=== PATIENT | female | born 1985 | race Caucasian/White ===

== ENCOUNTER 2018-03-31 15:02 | Inpatient (IN) | payer OTHER ==
[~2018-03-31 15:02] MED LIST: Bupivacaine 0.25% 10 ML SDV ONE
[2018-03-31] MEDS ORDERED: Nalbuphine 20 MG/ML 1 ML Syringe IVPUSH PRN (15:37)
[2018-03-31] MEDS ORDERED: Ondansetron 4 MG/2 ML SDV IVPUSH PRN (15:37)
[2018-03-31] MEDS ORDERED: Sodium Chloride 0.9% 10 ML Syringe FLUSH PRN (15:37)
[2018-03-31] MEDS ORDERED: Oxytocin/Lactated Ringers 10 UNIT/1,000 ML BAG IV SCH ×3 (15:45→20:16)
--- NOTE | 2018-03-31 15:53 | PCM.LDHP ---
L&D History of Present Illness - General Date of Service: 03/31/18 Admit Problem/Dx: Patient Status Order with Admit Dx/Problem 03/31/18 15:38 Patient Status [ADT] Routine Admission Diagnosis/Problem Admission Diagnosis/Problem Source of Information: Patient History Limitations: Reports: No Limitations - History of Present Illness Introduction:: Juanis Allan is a 32 year old at 40 weeks 2 days by LMP consistent with 6 week ultrasound who presents in active labor. She states that she began having regular contractions last evening but then they stopped during the night. Contractions restarted this afternoon at around noon and states that they were approximate 7 minutes apart. Reports the contractions are strong and causing enough pain to cause her to stop and catch her breath. She denies any leaking of fluid or vaginal bleeding. Reports good movement. Timing/Duration: Reports: gradual onset, getting worse (every 5-7 minutes) Location, : Reports: Abdomen, Lower back, Pelvic Quality: Reports: Pressure, Throbbing Severity: Moderate Improves with: Reports: None Worsens with: Reports: None Associated Symptoms: Denies: vaginal bleeding, vaginal discharge, vaginal fluid Present Illness Comments:: Juanis Allan is a 32 year old at 40 weeks 5 days by LMP consistent with 6 week ultrasound. She has had routine care with Dr. Uriostegui since 6 weeks gestational age review of her labs shows blood type is a positive with negative antibody screen. Her initial hematocrit was 36.3 and hemoglobin of 12.3 and platelets were 249 on 09/08/2017. She is immune to rubella. Her hepatitis B surface antigen, syphilis and HIV tests were all negative. She was negative for gonorrhea and chlamydia. Her Pap smear was normal with negative HPV testing. Her urine culture did not show any growth. Her quad screen was within normal limits. Her repeat hemoglobin with her 1 hour glucose test was 11.3 with platelets of 191. Her 1 hour glucose test was normal at 76. Her GBS swab was negative. This has been uncomplicated. Her anatomy ultrasound done at around 20 weeks was normal. - Related Data Allergies/Adverse Reactions: Allergies Allergy/AdvReac Type Severity Reaction Status Date / Time cephalexin Allergy Shortness Verified 12/09/14 07:36 of Breath Home Medications: Home Meds Vit 90/Iron Fum/Folic [ Formula] 1 tab PO DAILY 06/02/14 [ History] Acetaminophen [Tylenol] 650 mg PO Q4H PRN #0 tablet 12/10/14 [Rx] Benzocaine/Menthol [Dermoplast Pain [facility] [place]] 1 applic TOP ASDIRECTED PRN # 0 canister 12/10/14 [Rx] Docusate Sodium [Colace] 100 mg PO BID PRN #0 cap 12/10/14 [Rx] Hydrocortisone [Hydrocortisone 1% Crm] 1 applic TOP ASDIRECTED PRN #0 tube 12/10 [Rx] Ibuprofen [Motrin] 600 mg PO Q4H PRN #0 tablet 12/10/14 [Rx] Past Medical History - Past Health History Medical/Surgical History: Denies Medical/Surgical History Other HEENT History: teeth extraction : 3 Para: 2 Other Dermatologic History: mass excised from back Social & Family History - Tobacco Use Smoking Status *Q: Never Smoker - Tobacco Core Measures Tobacco Use/Smoking Within Last 30 Days: No - Alcohol Use Alcohol Use History: No - Recreational Drug Use Recreational Drug Use: No Drug Use in Last 12 Months: No - Living Situation & Occupation Living situation: Reports: , with Spouse Occupation: Employed H&P Review of Systems - Review of Systems: Review Of Systems: See Below General: Denies: Fever, Chills, Fatigue HEENT: Reports: Headaches (with contractions). Denies: Post Nasal Drip, Sinus Congestion, Sore Throat, Visual Changes Pulmonary: Denies: Shortness of Breath, Wheezing, Cough Cardiovascular: Denies: Chest Pain, Palpitations Gastrointestinal: Reports: Nausea (with painful contractions). Denies: Abdominal Pain, Constipation, Diarrhea, Vomiting Genitourinary: Denies: Dysuria, Frequency, Burning, Pain, Urgency Musculoskeletal: Reports: Back Pain. Denies: Joint Pain, Muscle Pain Skin: Denies: Rash, Lesions Psychiatric: Denies: Depression, Anxiety Hematologic/Lymphatic: Denies: Anemia L&D Exam - Exam Exam: See Below - Vital Signs Vital Signs: Last Vital Signs Temp 36.8 C 03/31/18 15:44 Pulse 79 03/31/18 15:44 Resp 16 03/31/18 15:44 BP 112/61 03/31/18 15:44 Pulse Ox 100 03/31/18 15:44 - OB Specific Contraction Duration (sec): 75 Contraction Frequency (min): 7-12 Contraction Intensity: Moderate to Strong Movement: Active Heart Tones: Present Heart Tones per Min: 145 (positive 15 x 15 accelerations, occasional variable decelerations) Heart Rate (FHR) Variability: Moderate (6-25 bmp) Presentation: Vertex Estimated Weight: 6.5-7 lbs by [place] - Fernandez Score Fernandez Score Cervix Position: Anterior Fernandez Score Consistency: Soft Fernandez Score Effacement: >80% (90%) Fernandez Score Dilation: > 5 cm (7 cm) Fernandez Score 's Station: -1 ,0 Fernandez Score Total: 12 - Exam General: Alert, Oriented HEENT: Conjunctiva Clear, EOMI Neck: Supple, Trachea Midline Lungs: Clear to Auscultation, Normal Respiratory Effort Cardiovascular: Regular Rate, Regular Rhythm GI/Abdominal Exam: Soft, Non-Tender, No Distention, Other (gravid). No: Guarding, Rigid, Rebound Genitourinary: Normal external exam Back Exam: Normal Inspection Extremities: Normal Inspection, No Pedal Edema Skin: Warm, Dry, Intact Psychiatric: Alert, Normal Affect, Normal Mood - Patient Data Lab Results Last 24 hrs: Laboratory Results - last 24 hr 03/31/18 Range/Units 15:35 WBC 8.95 (3.98-10.04) K/mm3 RBC 4.56 (3.98-5.22) M/mm3 Hgb 13.6 (11.2-15.7) gm/L Hct 40.2 (34.1-44.9) % MCV 88.2 (79.4-94.8) fl MCH 29.8 (25.6-32.2) pg MCHC 33.8 (32.2-35.5) g/dl RDW Std Deviation 43.5 (36.4-46.3) fL Plt Count 149 L (182-369) K/mm3 MPV 11.7 (9.4-12.3) fl Result Diagrams: 03/31/18 15:35 - Problem List (1) 40 weeks gestation of SNOMED Code(s): 75019706 ICD Code: Z3A.40 - 40 WEEKS GESTATION OF Status: Acute Current Visit: Yes (2) Normal SNOMED Code(s): 51225540 ICD Code: Z34.90 - ENCNTR FOR SUPRVSN OF NORMAL , UNSP, UNSP TRIMESTER Status: Acute Current Visit: No Problem List Initiated/Reviewed/Updated: Yes Orders Last 24hrs: Active Orders 24 hr Category Date Time Status Patient Status [ADT] Routine ADT 03/31/18 15:38 Active Activity as Tolerated [RC] PFP Care 03/31/18 15:37 Active Communication Order [RC] ASDIRECTED Care 03/31/18 15:37 Active Heart Tones [RC] ASDIRECTED Care 03/31/18 15:38 Active Non Stress Test [RC] PER UNIT ROUTINE Care 03/31/18 15:37 Active Notify Provider [RC] PFP Care 03/31/18 15:37 Active Notify Provider [RC] PRN Care 03/31/18 15:37 Active Peripheral IV Care [RC] . DIRECTED Care 03/31/18 15:38 Active Urinary Catheter Assessment [RC] ASDIRECTED Care 03/31/18 15:37 Active Vital Signs [RC] PER UNIT ROUTINE Care 03/31/18 15:37 Active Clear Liquid Diet [DIET] Diet 03/31/18 Dinner Active RAPID PLASMA REAGIN,RPR [CHEM] Routine Lab 03/31/18 15:37 Ordered Lactated Ringers [Ringers, Lactated] 1,000 ml Med 03/31/18 15:45 Ordered IV ASDIRECTED Nalbuphine [Nubain] Med 03/31/18 15:37 Ordered 10 mg IVPUSH Q2H PRN Ondansetron [Zofran] Med 03/31/18 15:37 Ordered 4 mg IVPUSH Q4H PRN Oxytocin/Lactated Ringers [Pitocin in LR 10 Units/1,000 Med 03/31/18 15:45 Ordered ML] 10 unit in 1,000 ml IV .CONTINUOUS Sodium Chloride 0.9% [Saline Flush] Med 03/31/18 15:37 Ordered 10 ml FLUSH ASDIRECTED PRN Electronic Heart Tones Ext w TOCO [WOMSER] Oth 03/31/18 15:37 Ordered Routine Electronic Heart Tones Internal [WOMSER] Per Unit Oth 03/31/18 15:37 Ordered Routine Peripheral IV Insertion Adult [OM.PC] Routine Oth 03/31/18 15:37 Ordered Resuscitation Status Routine Resus Stat 03/31/18 15:37 Ordered Medication Orders Lactated Ringer's (Ringers, Lactated) 1,000 mls @ 100 mls/hr IV ASDIRECTED HALEY Oxytocin/Lactated Ringer's (Pitocin In Lr 10 Units/1,000 Ml) 10 unit in 1,000 mls @ 500 mls/hr IV .CONTINUOUS HALEY; Protocol Nalbuphine HCl (Nubain) 10 mg IVPUSH Q2H PRN PRN Reason: pain Ondansetron HCl (Zofran) 4 mg IVPUSH Q4H PRN PRN Reason: Nausea/Vomiting Sodium Chloride (Saline Flush) 10 ml FLUSH ASDIRECTED PRN PRN Reason: Keep Vein Open Assessment/Plan Comment:: Refer to observation for spontaneous labor with cervical change Continuous monitoring Place IV and have Lactated Ringer's at 125 ml/hr May have small amounts of regular diet Activity as tolerated Plan for epidural Plans to breast-feed after delivery Anticipate vaginal delivery unless otherwise indicated Garcia Byrne M.D. 4:07 PM 03/31/2018
[2018-03-31] MEDS ORDERED: fentaNYL 100 MCG/2 ML SDV ONE (16:08)
[2018-03-31] MEDS: Lactated Ringers 1,000 ML IV SCH ×3 (16:11→17:45)
--- NOTE | 2018-03-31 17:16 | PCM.PNLD ---
Labor Progress Note - VS & Meds Vital Signs: Last Vital Signs Temp 36.8 C 03/31/18 15:44 Pulse 79 03/31/18 15:44 Resp 16 03/31/18 15:44 BP 112/61 03/31/18 15:44 Pulse Ox 100 03/31/18 15:44 Active Medications: Current Medications Lactated Ringer's (Ringers, Lactated) 1,000 mls @ 100 mls/hr IV ASDIRECTED HALEY Last Admin: 03/31/18 16:14 Dose: 100 mls/hr Oxytocin/Lactated Ringer's (Pitocin In Lr 10 Units/1,000 Ml) 10 unit in 1,000 mls @ 500 mls/hr IV .CONTINUOUS HALEY; Protocol Nalbuphine HCl (Nubain) 10 mg IVPUSH Q2H PRN PRN Reason: pain Ondansetron HCl (Zofran) 4 mg IVPUSH Q4H PRN PRN Reason: Nausea/Vomiting Sodium Chloride (Saline Flush) 10 ml FLUSH ASDIRECTED PRN PRN Reason: Keep Vein Open Discontinued Medications Fentanyl (Sublimaze) Confirm Administered Dose 100 mcg .ROUTE .STK-MED ONE Stop: 03/31/18 16:09 Last Admin: 03/31/18 16:32 Dose: 100 mcg - Uterine Contractions Uterine Monitoring Mode: External Lithium Contraction Frequency (min): 5-8 Contraction Duration (sec): 75 Contraction Intensity: Moderate to Strong Uterine Resting Tone: Soft - Monitoring Monitor Mode: Doppler/Auscultation Heart Rate (FHR) Baseline: 140 Heart Rate (FHR) Variability: Moderate (6-25 bmp) Accelerations: Present, 15x15 Decelerations: Variable, Intermittent (<50% x 20 min) Strip Review: Category II - Vaginal Exam Dilation (cm): 8 Effacement (Percent): 90 Station: -2 Cervical Position: Anterior Sterile Vaginal Exam Performed By: Garcia Byrne - Labor Progress (Free Text) Labor Progress: Patient with epidural in place and comfortable. Artificial rupture membranes performed with an AmniHook. Return a small amount of clear fluid. Mom and baby tolerated procedure without difficulty. Continues to monitor labor progress with monitoring for contractions. We will see if artificial rupture membranes can lead to increased number of contractions. If patient does not have increased frequency of contractions will consider augmenting labor with Pitocin. This plan was discussed with patient and she is in agreement. Anticipate vaginal delivery unless otherwise indicated. Garcia Byrne M.D. 5:15 PM 03/31/2018
[2018-03-31] MEDS ORDERED: ePHEDrine 50 MG/ML SDV IVPUSH PRN (18:37)
[2018-03-31] MEDS ORDERED: fentaNYL 100 MCG/2 ML SDV EPIDUR PRN (18:37)
--- NOTE | 2018-03-31 18:42 | PCM.PREANE ---
Preanesthetic Assessment - Anesthesia/Transfusion/Family Hx Anesthesia History: Prior Anesthesia Without Reaction Family History of Anesthesia Reaction: No Transfusion History: No Prior Transfusion(s) - Review of Systems General: No Symptoms Pulmonary: No Symptoms Cardiovascular: No Symptoms Gastrointestinal: Abdominal Pain (labor contractions) Neurological: No Symptoms Other: Reports: None - Physical Assessment Pulse: 79 O2 Sat by Pulse Oximetry: 100 Respiratory Rate: 16 Blood Pressure: 112/71 Temperature: 36.8 C Vital Signs: Last Vital Signs Temp 36.8 C 03/31/18 15:44 Pulse 79 03/31/18 15:44 Resp 16 03/31/18 15:44 BP 112/61 03/31/18 15:44 Pulse Ox 100 03/31/18 15:44 Height: 1.68 m Weight: 80.921 kg ASA Class: 2 Mental Status: Alert & Oriented x3 Airway Class: Mallampati = 1 Dentition: Reports: Normal Dentition Thyro-Mental Finger Breadths: 3 Mouth Opening Finger Breadths: 3 ROM/Head Extension: Full Lungs: Clear to Auscultation, Normal Respiratory Effort Cardiovascular: Regular Rate, Regular Rhythm - Lab Values: Laboratory Last Values WBC 8.95 K/mm3 (3.98-10.04) 03/31/18 15:35 RBC 4.56 M/mm3 (3.98-5.22) 03/31/18 15:35 Hgb 13.6 gm/L (11.2-15.7) 03/31/18 15:35 Hct 40.2 % (34.1-44.9) 03/31/18 15:35 MCV 88.2 fl (79.4-94.8) 03/31/18 15:35 MCH 29.8 pg (25.6-32.2) 03/31/18 15:35 MCHC 33.8 g/dl (32.2-35.5) 03/31/18 15:35 RDW Std Deviation 43.5 fL (36.4-46.3) 03/31/18 15:35 Plt Count 149 K/mm3 (182-369) L 03/31/18 15:35 MPV 11.7 fl (9.4-12.3) 03/31/18 15:35 - Allergies Allergies/Adverse Reactions: Allergies Allergy/AdvReac Type Severity Reaction Status Date / Time cephalexin Allergy Shortness Verified 12/09/14 07:36 of Breath ethinyl estradiol Allergy Rash Verified 03/31/18 15:57 [From Ortho [facility]] norelgestromin Allergy Rash Verified 03/31/18 15:57 [From Ortho [facility]] - Anesthesia Plan Pre-Op Medication Ordered: None - Acknowledgements Anesthesia Type Planned: Epidural Pt an Appropriate Candidate for the Planned Anesthesia: Yes Alternatives and Risks of Anesthesia Discussed w Pt/Guardian: Yes Pt/Guardian Understands and Agrees with Anesthesia Plan: Yes PreAnesthesia Questionnaire - Past Health History Medical/Surgical History: Denies Medical/Surgical History Other HEENT History: teeth extraction Gastrointestinal History: Reports: GERD 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: Other Dermatologic History: mass excised from back - SUBSTANCE USE Smoking Status *Q: Never Smoker Tobacco Use Within Last Twelve Months: No Recreational Drug Use History: No - HOME MEDS Home Medications: Home Meds Vit 90/Iron Fum/Folic [ Formula] 1 tab PO DAILY 06/02/14 [ History] Fish Oil/[place]-3 Fatty Acids [Fish Oil] 500 mg PO DAILY 03/31/18 [History] - CURRENT (IN HOUSE) MEDS Current Meds: Current Medications Ephedrine Sulfate (Ephedrine Sulfate) 5 mg IVPUSH ASDIRECTED PRN PRN Reason: HYPOTENTSION Fentanyl (Sublimaze) 100 mcg EPIDUR Q3H PRN PRN Reason: Pain Fentanyl/Bupivacaine HCl (Fentanyl/Bupivacaine/Ns 2 Mcg-0.125% 100 Ml) 100 ml EPIDUR ASDIRECTED HALEY Lactated Ringer's (Ringers, Lactated) 1,000 mls @ 100 mls/hr IV ASDIRECTED HALEY Last Admin: 03/31/18 17:45 Dose: 100 mls/hr Oxytocin/Lactated Ringer's (Pitocin In Lr 10 Units/1,000 Ml) 10 unit in 1,000 mls @ 500 mls/hr IV .CONTINUOUS HALEY; Protocol Oxytocin/Lactated Ringer's (Pitocin In Lr 10 Units/1,000 Ml) 10 unit in 1,000 mls @ 12 mls/hr IV TITRATE HALEY; Protocol Last Admin: 03/31/18 18:30 Dose: 2 munits/min, 12 mls/hr Nalbuphine HCl (Nubain) 10 mg IVPUSH Q2H PRN PRN Reason: pain Ondansetron HCl (Zofran) 4 mg IVPUSH Q4H PRN PRN Reason: Nausea/Vomiting Sodium Chloride (Saline Flush) 10 ml FLUSH ASDIRECTED PRN PRN Reason: Keep Vein Open Discontinued Medications Fentanyl (Sublimaze) Confirm Administered Dose 100 mcg .ROUTE .TV TubeX ONE Stop: 03/31/18 16:09 Last Admin: 03/31/18 16:32 Dose: 100 mcg
[2018-03-31] MEDS ORDERED: Bupivacaine/fentaNYL/NS 100 ML Bag EPIDUR SCH (18:45)
--- NOTE | 2018-03-31 20:12 | PCM.DEL ---
L & D Note - General Info Date of Service: 03/31/18 Mother's Due Date: 03/29/18 - Delivery Note Labor: Spontaneous, Augmented by ARM, Augmented by Oxytocin Delivery Outcome: Livebirth Delivery Method: Spontaneous Vaginal Delivery-Single Presentation: Right Occiput Anterior (SHANTEL) Nuchal Cord: Present (x 2 and delivered through secondary to tight nuchal cord) Prep: Povidone-Iodine (Betadine Anesthesia Type: Epidural Amniotic Fluid Description: Clear Episiotomy Type: None Laceration: 2nd Degree (midline perineal reparied with 3-0 Vicryl) Suture type: Vicryl Suture size: 3-0 Placenta: Intact, Spontaneous Cord: 3 Vessels Estimated Blood Loss: 200 Loop: Bulb Syringe, Stimulated, Warmed, [place] Used Provider: Twyla Uriostegui Score 1 min: 8 Score 5 min: 9 Second Stage Interventions: Reports: Pushing, Pulls Own Legs Back Delivery Comments (Free Text/Narrative):: Stage I: Juanis Allan was admitted for active labor. On admission her cervix was dilated to 7 cm. She was GBS negative. She was given an epidural for anesthesia. She had artificial rupture membranes with return of clear fluid. She was started on Pitocin for augmentation of labor. She progressed to complete and pushing. Stage II: On 03/31/2018 she had a normal vaginal delivery of a live female at 1940. Apgars of 8 & 9. Weight of 3490 g (7 lbs 0.1 oz). Length of 21.5 inches. There was a nuchal cord 2 and unable to be reduced prior to delivery due to tight nuchal cord. was delivered in SHANTEL position. The cord was doubly clamped and cut by myself. was placed on mother's abdomen. Stage III: She had a spontaneous delivery of an intact placenta in [place] presentation. Three vessel cord. She was given pitocin and fundal massage. She had second-degree midline laceration that was repaired with 3-0 Vicryl in normal fashion. Mom and baby were stable to recovery. EBL of 200 mL. Garcia Byrne MD 8:08 PM 03/31/2018 - General Info Date of Service: 03/31/18 - Patient Data Vitals - Most Recent: Last Vital Signs Temp 36.8 C 03/31/18 18:42 Pulse 79 03/31/18 18:42 Resp 16 03/31/18 18:42 BP 112/71 03/31/18 18:42 Pulse Ox 100 03/31/18 18:42 Weight - Most Recent: 80.921 kg I&O - Last 24 Hours: Intake & Output 03/31/18 03/31/18 03/31/18 06:59 14:59 22:59 Intake Total 1999 Balance 1999 Lab Results Last 24 Hours: Laboratory Results - last 24 hr 03/31/18 Range/Units 15:35 WBC 8.95 (3.98-10.04) K/mm3 RBC 4.56 (3.98-5.22) M/mm3 Hgb 13.6 (11.2-15.7) gm/L Hct 40.2 (34.1-44.9) % MCV 88.2 (79.4-94.8) fl MCH 29.8 (25.6-32.2) pg MCHC 33.8 (32.2-35.5) g/dl RDW Std Deviation 43.5 (36.4-46.3) fL Plt Count 149 L (182-369) K/mm3 MPV 11.7 (9.4-12.3) fl Med Orders - Current: Current Medications Ephedrine Sulfate (Ephedrine Sulfate) 5 mg IVPUSH ASDIRECTED PRN PRN Reason: HYPOTENTSION Fentanyl (Sublimaze) 100 mcg EPIDUR Q3H PRN PRN Reason: Pain Fentanyl/Bupivacaine HCl (Fentanyl/Bupivacaine/Ns 2 Mcg-0.125% 100 Ml) 100 ml EPIDUR ASDIRECTED HALEY Last Admin: 03/31/18 16:42 Dose: 100 ml Lactated Ringer's (Ringers, Lactated) 1,000 mls @ 100 mls/hr IV ASDIRECTED HALEY Last Admin: 03/31/18 17:45 Dose: 100 mls/hr Oxytocin/Lactated Ringer's (Pitocin In Lr 10 Units/1,000 Ml) 10 unit in 1,000 mls @ 500 mls/hr IV .CONTINUOUS HALEY; Protocol Oxytocin/Lactated Ringer's (Pitocin In Lr 10 Units/1,000 Ml) 10 unit in 1,000 mls @ 12 mls/hr IV TITRATE HALEY; Protocol Last Admin: 03/31/18 18:30 Dose: 2 munits/min, 12 mls/hr Nalbuphine HCl (Nubain) 10 mg IVPUSH Q2H PRN PRN Reason: pain Ondansetron HCl (Zofran) 4 mg IVPUSH Q4H PRN PRN Reason: Nausea/Vomiting Last Admin: 03/31/18 20:03 Dose: 4 mg Sodium Chloride (Saline Flush) 10 ml FLUSH ASDIRECTED PRN PRN Reason: Keep Vein Open Discontinued Medications Fentanyl (Sublimaze) Confirm Administered Dose 100 mcg .ROUTE .STK-MED ONE Stop: 03/31/18 16:09 Last Admin: 03/31/18 16:32 Dose: 100 mcg - Problem List & Annotations (1) 40 weeks gestation of SNOMED Code(s): 59264200 Code(s): Z3A.40 - 40 WEEKS GESTATION OF Status: Acute Current Visit: Yes (2) Normal SNOMED Code(s): 24387811 Code(s): Z34.90 - ENCNTR FOR SUPRVSN OF NORMAL , UNSP, UNSP TRIMESTER Status: Acute Current Visit: No (3) Second degree laceration of perineum, delivered, current hospitalization SNOMED Code(s): 161490212 Code(s): O70.1 - SECOND DEGREE PERINEAL LACERATION DURING DELIVERY Status: Acute Current Visit: Yes (4) Vaginal delivery SNOMED Code(s): 853855214 Code(s): O80 - ENCOUNTER FOR FULL-TERM UNCOMPLICATED DELIVERY Status: Acute Current Visit: No - Problem List Review Problem List Initiated/Reviewed/Updated: Yes - My Orders Last 24 Hours: My Active Orders 03/31/18 15:37 Activity as Tolerated [RC] PFP Communication Order [RC] ASDIRECTED Notify Provider [RC] PFP Notify Provider [RC] PRN Urinary Catheter Assessment [RC] ASDIRECTED Vital Signs [RC] PER UNIT ROUTINE RAPID PLASMA REAGIN,RPR [CHEM] Routine Nalbuphine [Nubain] 10 mg IVPUSH Q2H PRN Ondansetron [Zofran] 4 mg IVPUSH Q4H PRN Sodium Chloride 0.9% [Saline Flush] 10 ml FLUSH ASDIRECTED PRN Electronic Heart Tones Ext w TOCO [WOMSER] Routine Electronic Heart Tones Internal [WOMSER] Per Unit Routine Peripheral IV Insertion Adult [OM.PC] Routine Resuscitation Status Routine 03/31/18 15:38 Patient Status [ADT] Routine Heart Tones [RC] ASDIRECTED Peripheral IV Care [RC] . DIRECTED 03/31/18 15:45 Lactated Ringers [Ringers, Lactated] 1,000 ml IV ASDIRECTED Oxytocin/Lactated Ringers [Pitocin in LR 10 Units/1,000 ML] 10 unit in 1,000 ml IV .CONTINUOUS 03/31/18 18:30 Oxytocin/Lactated Ringers [Pitocin in LR 10 Units/1,000 ML] 10 unit in 1,000 ml IV TITRATE 03/31/18 20:00 Patient Status Manage Transfer [TRANSFER] Routine 03/31/18 Dinner Clear Liquid Diet [DIET] - Plan Plan:: Admit to inpatient following normal spontaneous vaginal delivery Continue Pitocin per unit protocol following delivery of placenta and lactated Ringer's until tolerating regular diet Regular diet Vitals per unit routine Ibuprofen and Tylenol for pain control Assist with breast-feeding as needed Continue to monitor lochia Anticipate discharge home on day #1 Garcia Byrne MD 8:08 PM 03/31/2018
[2018-03-31] MEDS ORDERED: Acetaminophen 325 MG Tab PO PRN (20:16)
[2018-03-31] MEDS ORDERED: Witch Hazel Medicated Pads 100/Jar TOP PRN (20:16)
[2018-03-31] MEDS ORDERED: Lanolin 100% Cream 7 GM Tube TOP PRN (20:16)
[2018-03-31] MEDS ORDERED: Hydrocortisone Acetate 25 MG Supp RECTAL PRN (20:16)
[2018-03-31] MEDS ORDERED: Benzocaine/Menthol 20%-0.5% Spray 56 GM Canister TOP PRN (20:16)
[2018-03-31] MEDS ORDERED: Docusate Sodium 100 MG Cap PO PRN (20:16)
[2018-03-31] MEDS ORDERED: Magnesium Hydroxide 400 MG/5 ML Susp 30 ML Cup PO PRN (20:16)
[2018-03-31] MEDS: Ibuprofen 600 MG Tab PO PRN (21:03)
[2018-04-01] MEDS: Ibuprofen 600 MG Tab PO PRN ×3 (05:15→17:24)
[2018-04-01] MEDS ORDERED: Prenatal Multivitamin with Calcium/Folic Acid/Iron Tab PO SCH (09:00)
--- NOTE | 2018-04-01 11:55 | PCM.SN ---
- Free Text/Narrative Note: Post Progress Note PPD #1 Subjective: Doing well overall. Ambulating without difficulty. Lochia minimal and decreasing throughout the night. Voiding without difficulty. Tolerating regular diet without nausea or vomiting. Pain controlled with oral medications. Breast feeding with minimal difficulty. Objective: Vitals: Vital Signs - 24 hr 03/31/18 03/31/18 04/01/18 15:44 18:42 05:11 Temperature 36.8 C 36.7 C Temperature [ 36.8 C Axillary] Pulse, 79 59 L Peripheral Pulse, 79 Peripheral [ Left Pulse Oximetry] Respiratory 16 16 16 Rate Blood Pressure 112/71 91/53 L Blood Pressure 112/61 [Left Arm] O2 Sat by Pulse 100 100 96 Oximetry Physical Exam General: Alert and oriented, no acute distress Lungs: Clear to auscultation bilaterally Heart: Regular rate and rhythm Abdomen: Soft, minimal appropriate tenderness, non-distended, fundus midline, nontender, and below the umbilicus Extremities: Trace edema in bilateral legs to lower shins ASSESSMENT: 32-year-old female G3P 3003 s/p normal vaginal delivery PPD #1 PLAN: Doing well Breast feeding with minimal difficulty. Assist as needed Lochia minimal. Continue to monitor for appropriate lochia. Continue routine care Anticipate discharge home today Garcia Byrne MD 11:54 AM 04/01/2018
--- NOTE | 2018-04-01 12:00 | PCM.DCSUM1 ---
Discharge Summary - Hospital Course Free Text/Narrative:: Stage I: Juanis Allan was admitted for active labor. On admission her cervix was dilated to 7 cm. She was GBS negative. She was given an epidural for anesthesia. She had artificial rupture membranes with return of clear fluid. She was started on Pitocin for augmentation of labor. She progressed to complete and pushing. Stage II: On 03/31/2018 she had a normal vaginal delivery of a live female at 1940. Apgars of 8 & 9. Weight of 3490 g (7 lbs 11.1 oz). Length of 21.5 inches. There was a nuchal cord 2 and unable to be reduced prior to delivery due to tight nuchal cord. Infant was delivered in SHANTEL position. The cord was doubly clamped and cut by myself. was placed on mother's abdomen. Stage III: She had a spontaneous delivery of an intact placenta in [place] presentation. Three vessel cord. She was given pitocin and fundal massage. She had second-degree midline laceration that was repaired with 3-0 Vicryl in normal fashion. Mom and baby were stable to recovery. EBL of 200 mL. HPI Initial Comments: Stage I: Juanis Allan was admitted for active labor. On admission her cervix was dilated to 7 cm. She was GBS negative. She was given an epidural for anesthesia. She had artificial rupture membranes with return of clear fluid. She was started on Pitocin for augmentation of labor. She progressed to complete and pushing. Stage II: On 03/31/2018 she had a normal vaginal delivery of a live female infant at 1940. Apgars of 8 & 9. Weight of 3490 g (7 lbs 11.1 oz). Length of 21.5 inches. There was a nuchal cord 2 and unable to be reduced prior to delivery due to tight nuchal cord. was delivered in SHANTEL position. The cord was doubly clamped and cut by myself. was placed on mother's abdomen. Stage III: She had a spontaneous delivery of an intact placenta in [place] presentation. Three vessel cord. She was given pitocin and fundal massage. She had second-degree midline laceration that was repaired with 3-0 Vicryl in normal fashion. Mom and baby were stable to recovery. EBL of 200 mL. Brief History: Stage I: Juanis Allan was admitted for active labor. On admission her cervix was dilated to 7 cm. She was GBS negative. She was given an epidural for anesthesia. She had artificial rupture membranes with return of clear fluid. She was started on Pitocin for augmentation of labor. She progressed to complete and pushing. Stage II: On 03/31/2018 she had a normal vaginal delivery of a live female infant at 1940. Apgars of 8 & 9. Weight of 3490 g (7 lbs 11.1 oz). Length of 21.5 inches. There was a nuchal cord 2 and unable to be reduced prior to delivery due to tight nuchal cord. was delivered in SHANTEL position. The cord was doubly clamped and cut by myself. Infant was placed on mother's abdomen. Stage III: She had a spontaneous delivery of an intact placenta in [place] presentation. Three vessel cord. She was given pitocin and fundal massage. She had second-degree midline laceration that was repaired with 3-0 Vicryl in normal fashion. Mom and baby were stable to recovery. EBL of 200 mL. - Discharge Data Discharge Date: 04/01/18 Discharge Disposition: Home, Self-Care 01 Condition: Good - Discharge Diagnosis/Problem(s) (1) 40 weeks gestation of SNOMED Code(s): 86641253 ICD Code: Z3A.40 - 40 WEEKS GESTATION OF Status: Acute Current Visit: Yes (2) Normal SNOMED Code(s): 82461910 ICD Code: Z34.90 - ENCNTR FOR SUPRVSN OF NORMAL , UNSP, UNSP TRIMESTER Status: Acute Current Visit: No (3) Second degree laceration of perineum, delivered, current hospitalization SNOMED Code(s): 737473088 ICD Code: O70.1 - SECOND DEGREE PERINEAL LACERATION DURING DELIVERY Status : Acute Current Visit: Yes (4) Vaginal delivery SNOMED Code(s): 133336261 ICD Code: O80 - ENCOUNTER FOR FULL-TERM UNCOMPLICATED DELIVERY Status: Acute Current Visit: No - Patient Summary/Data Complications: None Consults: None Hospital Course: Juanis Allan was admitted for active labor. On admission her cervix was dilated to 7 cm. She was GBS negative. She was given an epidural for anesthesia. She had artificial rupture of membranes with clear fluid. She was given pitocin for augmentation. She progressed to complete and began pushing. On 03/31/2018 she had a normal vaginal delivery of a live female infant at 1940. Apgars of 8 and 9. Weight of 3490 g (7 pounds 11.1 ounces). Her course was uneventful. Her pain was well controlled and she had minimal lochia. She was ambulating, tolerating a regular diet and voiding normally. She was breast feeding. She was afebrile and her hematocrit was 40.2 on admission. She desired to be discharged home on the morning of PPD #1. Her blood type is a positive. - Patient Instructions Diet: Regular Diet as Tolerated Activity: Apply Ice, As Tolerated Activity, Other: Nothing in the vagina for 6 weeks Driving: May Drive Today Showering/Bathing: May Shower Notify Provider of: Fever, Increased Pain, Swelling and Redness, Drainage, Nausea and/or Vomiting Other/Special Instructions: Please contact her physician's office if you have heavy vaginal bleeding enough to soak a pad in less than an hour for several hours. - Discharge Plan *PRESCRIPTION DRUG MONITORING PROGRAM REVIEWED*: Not Applicable *COPY OF PRESCRIPTION DRUG MONITORING REPORT IN PATIENT LISA: Not Applicable Home Medications: Home Meds Vit 90/Iron Fum/Folic [ Formula] 1 tab PO DAILY 06/02/14 [ History] Fish Oil/[place]-3 Fatty Acids [Fish Oil] 500 mg PO DAILY 03/31/18 [History] Acetaminophen [Tylenol] 650 mg PO Q6H PRN tablet 04/01/18 [Rx] Benzocaine/Menthol [Dermoplast Pain Relief [place]] 1 spray TOP ASDIRECTED PRN canister 04/01/18 [Rx] Docusate Sodium [Colace] 100 mg PO BID PRN cap 04/01/18 [Rx] Hydrocortisone Acetate [Anucort-HC] 25 mg RECTAL BID PRN supp 04/01/18 [Rx] Ibuprofen [Motrin] 600 mg PO Q6H PRN tablet 04/01/18 [Rx] Lanolin [Lansinoh HPA] 1 applic TOP ASDIRECTED PRN tube 04/01/18 [Rx] Witch Liberty [Tucks] 1 pad TOP ASDIRECTED PRN pad 04/01/18 [Rx] Patient Handouts: Vaginal Delivery, Care After, Care of a Perineal Tear Referrals: Twyla Uriostegui MD [Primary Care Provider] - (Follow-up in 3-6 weeks or earlier as needed for visit.) - Discharge Summary/Plan Comment DC Time >30 min.: No - Patient Data Vitals - Most Recent: Last Vital Signs Temp 36.7 C 04/01/18 05:11 Pulse 59 L 04/01/18 05:11 Resp 16 04/01/18 05:11 BP 91/53 L 04/01/18 05:11 Pulse Ox 96 04/01/18 05:11 Weight - Most Recent: 80.921 kg I&O - Last 24 hours: Intake & Output 03/31/18 04/01/18 04/01/18 22:59 06:59 14:59 Intake Total 6000 240 Balance 6000 240 Lab Results - Last 24 hrs: Laboratory Results - last 24 hr 03/31/18 Range/Units 15:35 WBC 8.95 (3.98-10.04) K/mm3 RBC 4.56 (3.98-5.22) M/mm3 Hgb 13.6 (11.2-15.7) gm/L Hct 40.2 (34.1-44.9) % MCV 88.2 (79.4-94.8) fl MCH 29.8 (25.6-32.2) pg MCHC 33.8 (32.2-35.5) g/dl RDW Std Deviation 43.5 (36.4-46.3) fL Plt Count 149 L (182-369) K/mm3 MPV 11.7 (9.4-12.3) fl Med Orders - Current: Current Medications Acetaminophen (Tylenol) 650 mg PO Q6H PRN PRN Reason: mild pain or fever Benzocaine/Menthol (Dermoplast Pain Relief [place]) 0 gm TOP ASDIRECTED PRN PRN Reason: Perineal Comfort Measure Last Admin: 03/31/18 21:05 Dose: 1 canister Docusate Sodium (Colace) 100 mg PO BID PRN PRN Reason: Constipation Emollient Ointment (Lansinoh Hpa) 0 gm TOP ASDIRECTED PRN PRN Reason: Sore Nipples Hydrocortisone Acetate (Anucort-Hc) 25 mg RECTAL BID PRN PRN Reason: Hemorrhoid pain Oxytocin/Lactated Ringer's (Pitocin In Lr 10 Units/1,000 Ml) 10 unit in 1,000 mls @ 100 mls/hr IV TITRATE HALEY; Protocol Ibuprofen (Motrin) 600 mg PO Q6H PRN PRN Reason: Mild pain or fever Last Admin: 04/01/18 11:39 Dose: 600 mg Magnesium Hydroxide (Milk Of Magnesia) 30 ml PO BEDTIME PRN PRN Reason: Constipation Prenat Multivit/[place]/Iron/Folic Ac ( Plus Iron) 1 each PO DAILY HALEY Last Admin: 04/01/18 11:42 Dose: 1 each Witch Liberty (Tucks) 1 pad TOP ASDIRECTED PRN PRN Reason: Hemorrhoid pain Last Admin: 03/31/18 21:04 Dose: 1 tub Discontinued Medications Ephedrine Sulfate (Ephedrine Sulfate) 5 mg IVPUSH ASDIRECTED PRN PRN Reason: HYPOTENTSION Fentanyl (Sublimaze) Confirm Administered Dose 100 mcg .ROUTE .[facility] Stop: 03/31/18 16:09 Last Admin: 03/31/18 16:32 Dose: 100 mcg Fentanyl (Sublimaze) 100 mcg EPIDUR Q3H PRN PRN Reason: Pain Fentanyl/Bupivacaine HCl (Fentanyl/Bupivacaine/Ns 2 Mcg-0.125% 100 Ml) 100 ml EPIDUR ASDIRECTED HALEY Last Admin: 03/31/18 16:42 Dose: 100 ml Lactated Ringer's (Ringers, Lactated) 1,000 mls @ 100 mls/hr IV ASDIRECTED HALEY Last Admin: 03/31/18 17:45 Dose: 100 mls/hr Oxytocin/Lactated Ringer's (Pitocin In Lr 10 Units/1,000 Ml) 10 unit in 1,000 mls @ 500 mls/hr IV .CONTINUOUS HALEY; Protocol Oxytocin/Lactated Ringer's (Pitocin In Lr 10 Units/1,000 Ml) 10 unit in 1,000 mls @ 12 mls/hr IV TITRATE HALEY; Protocol Last Admin: 03/31/18 18:30 Dose: 2 munits/min, 12 mls/hr Nalbuphine HCl (Nubain) 10 mg IVPUSH Q2H PRN PRN Reason: pain Ondansetron HCl (Zofran) 4 mg IVPUSH Q4H PRN PRN Reason: Nausea/Vomiting Last Admin: 03/31/18 20:03 Dose: 4 mg Sodium Chloride (Saline Flush) 10 ml FLUSH ASDIRECTED PRN PRN Reason: Keep Vein Open
[2018-04-01 20:49] VITALS: BP 110/56
== END 2018-04-01 20:40 | disposition home or self-care (01) | DRG 775 ==
LOC: JD.OB 15:02 → JD.OBCHECK 15:02 → UNDOADMOB 15:38 → JD.OB 15:38 → OBSVTOIN 19:40 → INTOOBSV 19:40 → JD.OB 19:40
PROVIDERS: ADMIT Obstetrics & Gynecology; ATTEND Obstetrics & Gynecology
PROC: 0KQM0ZZ Repair Perineum Muscle, Open Approach (ICD-10-PCS; principal; 2018-03-31)
PROC: 10907ZC Drainage of Amniotic Fluid, Therapeutic from Products of Conception, Via Natural or Artificial Opening (ICD-10-PCS; principal; 2018-03-31)
PROC: 10E0XZZ Delivery of Products of Conception, External Approach (ICD-10-PCS; principal; 2018-03-31)
PROC: 00HU33Z Insertion of Infusion Device into Spinal Canal, Percutaneous Approach (ICD-10-PCS; 2018-03-31)
PROC: 3E0R3BZ Introduction of Anesthetic Agent into Spinal Canal, Percutaneous Approach (ICD-10-PCS; 2018-03-31)
DX: O48.0 Post-term pregnancy (principal); Z3A.40 40 weeks gestation of pregnancy; O69.1XX0 Labor and delivery complicated by cord around neck, with compression, not applicable or unspecified; O70.1 Second degree perineal laceration during delivery; Z37.0 Single live birth
CPT/HCPCS: 36415; 51701; 59025; 59300; 59409; 85027; 86592; A9270-GY; J2405; J2590; J3010; J3490; J7120

== ENCOUNTER 2020-07-25 07:06 | Inpatient (IN) | payer BC, OTHER ==
[2020-07-27] MEDS ORDERED: Sodium Chloride 0.9% 10 ML Syringe FLUSH PRN (07:21)
[2020-07-27] MEDS ORDERED: Nalbuphine 10 MG/1 ML Vial IVPUSH PRN (07:21)
[2020-07-27] MEDS ORDERED: Ondansetron 4 MG/2 ML SDV IVPUSH PRN (07:21)
[2020-07-27] MEDS ORDERED: Oxytocin/Lactated Ringers 10 UNIT/1,000 ML BAG IV SCH (07:30)
--- NOTE | 2020-07-27 07:34 | PCM.LDHP ---
L&D History of Present Illness - General Date of Service: 07/27/20 Admit Problem/Dx: Patient Status Order with Admit Dx/Problem 07/27/20 07:22 Patient Status [ADT] Routine Admission Diagnosis/Problem Admission Diagnosis/Problem Source of Information: Patient History Limitations: Reports: No Limitations - History of Present Illness Introduction:: Patient is a 35 y/o at 40 2/7 wks presents for IOL. Doing well. Good FM. 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 (Approximate): Other Dermatologic History: mass excised from back - Past Surgical History HEENT Surgical History: Reports: Oral Surgery (tooth extraction) Social & Family History - Family History Family Medical History: No Pertinent Family History - Tobacco Use Tobacco Use Status *Q: Never Tobacco User - Caffeine Use Caffeine Use: Reports: None - Alcohol Use Alcohol Use History: No - Recreational Drug Use Recreational Drug Use: No - Living Situation & Occupation Living situation: Reports: , with Spouse Occupation: Employed H&P Review of Systems - Review of Systems: Review Of Systems: See Below General: Reports: No Symptoms Pulmonary: Reports: No Symptoms Cardiovascular: Reports: No Symptoms Gastrointestinal: Reports: No Symptoms Genitourinary: Reports: No Symptoms Musculoskeletal: Reports: No Symptoms Psychiatric: Reports: No Symptoms Neurological: Reports: No Symptoms L&D Exam - Exam Exam: See Below - OB Specific Contraction Intensity: Irritability Movement: Active Heart Tones: Present Heart Tones per Min: 130 Heart Rate (FHR) Variability: Moderate (6-25 bmp) Presentation: Vertex - Fernandez Score Fernandez Score Cervix Position: Midposition Fernandez Score Consistency: Soft Fernandez Score Effacement: 51-70% Fernandez Score Dilation: 1-2 cm Fernandez Score Infant's Station: -3 Fernandez Score Total: 6 - Exam General: Alert, Oriented, Cooperative Lungs: Clear to Auscultation, Normal Respiratory Effort Cardiovascular: Regular Rate, Regular Rhythm GI/Abdominal Exam: Soft, Non-Tender Genitourinary: Normal external exam Extremities: Normal Inspection Skin: Warm, Dry, Intact - Patient Data Result Diagrams: 07/27/20 07:50 - Problem List (1) 40 weeks gestation of SNOMED Code(s): 37590394 ICD Code: Z3A.40 - 40 WEEKS GESTATION OF Status: Acute Current Visit: No Problem List Initiated/Reviewed/Updated: Yes Orders Last 24hrs: Active Orders 24 hr Category Date Time Status Patient Status [ADT] Routine ADT 07/27/20 07:22 Active Activity as Tolerated [RC] PFP Care 07/27/20 07:22 Active Communication Order [RC] ASDIRECTED Care 07/27/20 07:22 Active Heart Tones [RC] ASDIRECTED Care 07/27/20 07:22 Active Non Stress Test [RC] PER UNIT ROUTINE Care 07/27/20 07:22 Active Notify Provider [RC] PFP Care 07/27/20 07:22 Active Notify Provider [RC] PRN Care 07/27/20 07:22 Active Peripheral IV Care [RC] . DIRECTED Care 07/27/20 07:22 Active Pump Management, Intrathecal [RC] ASDIRECTED Care 07/27/20 07:23 Active Urinary Catheter Assessment [RC] ASDIRECTED Care 07/27/20 07:21 Active Vital Signs [RC] PER UNIT ROUTINE Care 07/27/20 07:22 Active Regular Diet [DIET] Diet 07/27/20 Breakfast Active CBC WITH AUTO DIFF [HEME] Stat Lab 07/27/20 07:21 Ordered CORONAVIRUS COVID-19 CE [MOLEC] Stat Lab 07/27/20 07:25 Ordered RAPID PLASMA REAGIN,RPR [CHEM] Routine Lab 07/27/20 07:22 Ordered TYPE AND SCREEN [BBK] Stat Lab 07/27/20 07:21 Ordered Lactated Ringers [Ringers, Lactated] 1,000 ml Med 07/27/20 07:30 Active IV ASDIRECTED Nalbuphine [Nubain] Med 07/27/20 07:21 Active 10 mg IVPUSH Q2H PRN Ondansetron [Zofran] Med 07/27/20 07:21 Active 4 mg IVPUSH Q4H PRN Oxytocin/Lactated Ringers [Pitocin in LR 10 Units/1,000 Med 07/27/20 07:30 Active ML] 10 unit in 1,000 ml IV .CONTINUOUS Oxytocin/Lactated Ringers [Pitocin in LR 10 Units/1,000 Med 07/27/20 07:30 Active ML] 10 unit in 1,000 ml IV TITRATE Sodium Chloride 0.9% [Saline Flush] Med 07/27/20 07:21 Active 10 ml FLUSH ASDIRECTED PRN Electronic Heart Tones Ext w TOCO [WOMSER] Oth 07/27/20 07:22 Ordered Routine Electronic Heart Tones Internal [WOMSER] Per Unit Oth 07/27/20 07:22 Ordered Routine Peripheral IV Insertion Adult [OM.PC] Routine Oth 07/27/20 07:22 Ordered Resuscitation Status Routine Resus Stat 07/27/20 07:21 Ordered Medication Orders Oxytocin/Lactated Ringer's (Pitocin In Lr 10 Units/1,000 Ml) 10 unit in 1,000 mls @ 12 mls/hr IV TITRATE HALEY; Protocol Oxytocin/Lactated Ringer's (Pitocin In Lr 10 Units/1,000 Ml) 10 unit in 1,000 mls @ 500 mls/hr IV .CONTINUOUS HALEY Lactated Ringer's (Ringers, Lactated) 1,000 mls @ 100 mls/hr IV ASDIRECTED HALEY Nalbuphine HCl (Nubain) 10 mg IVPUSH Q2H PRN PRN Reason: Pain Ondansetron HCl (Zofran) 4 mg IVPUSH Q4H PRN PRN Reason: Nausea/Vomiting Sodium Chloride (Saline Flush) 10 ml FLUSH ASDIRECTED PRN PRN Reason: Keep Vein Open Assessment/Plan Comment:: * Labs * GBS negative * Pitocin and then AROM for IOL * Pain management per patient preference * Anticipate
[2020-07-27] MEDS: Lactated Ringers 1,000 ML IV SCH ×3 (08:04→19:53)
[2020-07-27] MEDS: Oxytocin/Lactated Ringers 10 UNIT/1,000 ML BAG IV SCH ×2 (08:05→19:53)
[2020-07-27] MEDS ORDERED: diphenhydrAMINE 50 MG/ML SDV IVPUSH PRN (09:14)
[2020-07-27] MEDS ORDERED: ePHEDrine 50 MG/ML SDV IVPUSH PRN (09:14)
[2020-07-27] MEDS ORDERED: fentaNYL 100 MCG/2 ML SDV EPIDUR PRN (09:14)
[2020-07-27] MEDS ORDERED: Bupivacaine/fentaNYL/NS 100 ML Bag EPIDUR PRN (09:14)
[2020-07-27] MEDS ORDERED: Lidocaine 1.5% with EPINEPHrine 1:200,000 5 ML Amp ONE (10:00)
--- NOTE | 2020-07-27 11:28 | PCM.PNLD ---
Labor Progress Note - VS & Meds Vital Signs: Last Vital Signs Temp 36.8 C 07/27/20 08:00 Pulse 93 07/27/20 08:00 Resp 16 07/27/20 08:00 BP 106/65 07/27/20 08:00 Pulse Ox 97 07/27/20 08:00 Active Medications: Current Medications Diphenhydramine HCl (Benadryl) 25 mg IVPUSH Q6H PRN PRN Reason: pruritis Ephedrine Sulfate (Ephedrine Sulfate) 5 mg IVPUSH ASDIRECTED PRN PRN Reason: Hypotension Fentanyl (Sublimaze) 100 mcg EPIDUR Q3H PRN PRN Reason: Pain Fentanyl/Bupivacaine HCl (Fentanyl/Bupivacaine/Ns 2 Mcg-0.125% 100 Ml) 100 ml EPIDUR ASDIRECTED PRN PRN Reason: Pain Oxytocin/Lactated Ringer's (Pitocin In Lr 10 Units/1,000 Ml) 10 unit in 1,000 mls @ 12 mls/hr IV TITRATE HALEY; Protocol Last Titration: 07/27/20 10:10 Dose: 8 munits/min, 48 mls/hr Documented by: Oxytocin/Lactated Ringer's (Pitocin In Lr 10 Units/1,000 Ml) 10 unit in 1,000 mls @ 500 mls/hr IV .CONTINUOUS HALEY Lactated Ringer's (Ringers, Lactated) 1,000 mls @ 100 mls/hr IV ASDIRECTED HALEY Last Admin: 07/27/20 08:04 Dose: 100 mls/hr Documented by: Nalbuphine HCl (Nubain) 10 mg IVPUSH Q2H PRN PRN Reason: Pain Ondansetron HCl (Zofran) 4 mg IVPUSH Q4H PRN PRN Reason: Nausea/Vomiting Sodium Chloride (Saline Flush) 10 ml FLUSH ASDIRECTED PRN PRN Reason: Keep Vein Open - Uterine Contractions Uterine Monitoring Mode: External [place] Contraction Intensity: Mild to Moderate Uterine Resting Tone: Soft - Monitoring Monitor Mode: External Ultrasound Heart Rate (FHR) Baseline: 120 Heart Rate (FHR) Variability: Moderate (6-25 bmp) Accelerations: Present, 15x15 Decelerations: None Strip Review: Category I - Vaginal Exam Dilation (cm): 2 Effacement (Percent): 50 Station: -3 Cervical Position: Midposition - Labor Progress (Free Text) Labor Progress: Doing well. Pitocin at 10. AROM performed with release of scant amount of clear fluid
--- NOTE | 2020-07-27 14:01 | PCM.PREANE ---
Preanesthetic Assessment - Anesthesia/Transfusion/Family Hx Anesthesia History: No Prior Anesthesia Transfusion History: No Prior Transfusion(s) - Review of Systems General: No Symptoms Pulmonary: No Symptoms Cardiovascular: No Symptoms Gastrointestinal: No Symptoms Neurological: No Symptoms Other: Reports: None - Physical Assessment NPO Status Date: 07/27/20 NPO Status Time: 13:00 Vital Signs: Last Vital Signs Temp 98.3 F 07/27/20 08:00 Pulse 93 07/27/20 08:00 Resp 16 07/27/20 08:00 BP 106/65 07/27/20 08:00 Pulse Ox 97 07/27/20 08:00 Height: 1.68 m Weight: 78.925 kg ASA Class: 2 Mental Status: Alert & Oriented x3 Airway Class: Mallampati = 1 Dentition: Reports: Normal Dentition Thyro-Mental Finger Breadths: 3 Mouth Opening Finger Breadths: 3 ROM/Head Extension: Full Lungs: Clear to Auscultation, Normal Respiratory Effort Cardiovascular: Regular Rate, Regular Rhythm - Lab Values: Laboratory Last Values WBC 7.65 K/mm3 (3.98-10.04) 07/27/20 07:50 RBC 3.91 M/mm3 (3.98-5.22) L 07/27/20 07:50 Hgb 11.5 gm/dl (11.2-15.7) D 07/27/20 07:50 Hct 35.2 % (34.1-44.9) 07/27/20 07:50 MCV 90.0 fl (79.4-94.8) 07/27/20 07:50 MCH 29.4 pg (25.6-32.2) 07/27/20 07:50 MCHC 32.7 g/dl (32.2-35.5) 07/27/20 07:50 RDW Std Deviation 41.5 fL (36.4-46.3) 07/27/20 07:50 Plt Count 205 K/mm3 (182-369) 07/27/20 07:50 MPV 10.6 fl (9.4-12.3) 07/27/20 07:50 Neut % (Auto) 66.6 % (34.0-71.1) 07/27/20 07:50 Lymph % (Auto) 21.3 % (19.3-51.7) 07/27/20 07:50 [place] % (Auto) 9.0 % (4.7-12.5) 07/27/20 07:50 Eos % (Auto) 2.1 (0.7-5.8) 07/27/20 07:50 Baso % (Auto) 0.1 % (0.1-1.2) 07/27/20 07:50 Neut # (Auto) 5.09 K/mm3 (1.56-6.13) 07/27/20 07:50 Lymph # (Auto) 1.63 K/mm3 (1.18-3.74) 07/27/20 07:50 Stevens # (Auto) 0.69 K/mm3 (0.24-0.36) H 07/27/20 07:50 Eos # (Auto) 0.16 K/mm3 (0.04-0.36) 07/27/20 07:50 Baso # (Auto) 0.01 K/mm3 (0.01-0.08) 07/27/20 07:50 SARS-CoV-2 RNA (CE) Negative (NEGATIVE) 07/27/20 07:25 Blood Type A POSITIVE 07/27/20 08:00 Gel Antibody Screen Negative 07/27/20 08:00 - Allergies Allergies/Adverse Reactions: Allergies Allergy/AdvReac Type Severity Reaction Status Date / Time cephalexin Allergy Shortness Verified 12/09/14 07:36 of Breath ethinyl estradiol Allergy Rash Verified 03/31/18 15:57 [From Ortho Evra] norelgestromin Allergy Rash Verified 03/31/18 15:57 [From Ortho Evra] - Acknowledgements Anesthesia Type Planned: Epidural Pt an Appropriate Candidate for the Planned Anesthesia: Yes Alternatives and Risks of Anesthesia Discussed w Pt/Guardian: Yes Pt/Guardian Understands and Agrees with Anesthesia Plan: Yes PreAnesthesia Questionnaire - Past Health History Medical/Surgical History: Denies Medical/Surgical History Other HEENT History: teeth extraction 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 Dermatologic History: mass excised from back - Past Surgical History HEENT Surgical History: Reports: Oral Surgery (tooth extraction) - SUBSTANCE USE Tobacco Use Status *Q: Never Tobacco User Recreational Drug Use History: No - HOME MEDS Home Medications: Home Meds Vit 90/Iron Fum/Folic [ Formula] 1 tab PO DAILY 06/02/14 [History] - CURRENT (IN HOUSE) MEDS Current Meds: Current Medications Diphenhydramine HCl (Benadryl) 25 mg IVPUSH Q6H PRN PRN Reason: pruritis Ephedrine Sulfate (Ephedrine Sulfate) 5 mg IVPUSH ASDIRECTED PRN PRN Reason: Hypotension Fentanyl (Sublimaze) 100 mcg EPIDUR Q3H PRN PRN Reason: Pain Last Admin: 07/27/20 13:38 Dose: 100 mcg Documented by: Fentanyl/Bupivacaine HCl (Fentanyl/Bupivacaine/Ns 2 Mcg-0.125% 100 Ml) 100 ml EPIDUR ASDIRECTED PRN PRN Reason: Pain Last Admin: 07/27/20 13:38 Dose: 100 ml Documented by: Oxytocin/Lactated Ringer's (Pitocin In Lr 10 Units/1,000 Ml) 10 unit in 1,000 mls @ 12 mls/hr IV TITRATE HALEY; Protocol Last Titration: 07/27/20 13:15 Dose: 14 munits/min, 84 mls/hr Documented by: Oxytocin/Lactated Ringer's (Pitocin In Lr 10 Units/1,000 Ml) 10 unit in 1,000 mls @ 500 mls/hr IV .CONTINUOUS HALEY Lactated Ringer's (Ringers, Lactated) 1,000 mls @ 100 mls/hr IV ASDIRECTED HALEY Last Admin: 07/27/20 08:04 Dose: 100 mls/hr Documented by: Nalbuphine HCl (Nubain) 10 mg IVPUSH Q2H PRN PRN Reason: Pain Ondansetron HCl (Zofran) 4 mg IVPUSH Q4H PRN PRN Reason: Nausea/Vomiting Sodium Chloride (Saline Flush) 10 ml FLUSH ASDIRECTED PRN PRN Reason: Keep Vein Open
--- NOTE | 2020-07-27 22:29 | PCM.DEL ---
L & D Note - General Info Date of Service: 07/27/20 - Delivery Note Labor: Induced by ARM, Induced by Oxytocin Delivery Outcome: Livebirth Infant Delivery Method: Spontaneous Vaginal Delivery-Single Infant Delivery Mode: Spontaneous Presentation: Right Occiput Anterior (SHANTEL) Nuchal Cord: None Anesthesia Type: Epidural Amniotic Fluid Description: Clear Episiotomy Type: None Laceration: None Placenta: Intact, Spontaneous Cord: 3 Vessels Estimated Blood Loss: 100 Resuscitation Needed: Yes [place]: Bulb Syringe, Stimulated, Warmed, [place] Used, Warmer Used Delivery Comments (Free Text/Narrative):: With maternal pushing effort head delivered from an SHANTEL presentation. No nuchal cord present. With gentle downward traction the shoulders and body delivered. Infant placed on maternal abdomen. Cord clamped and cut. Cord blood obtained. Placenta allowed time to separate and expelled intact. Inspection of perineum showed no lacerations. - General Info Date of Service: 07/27/20 - Patient Data Vitals - Most Recent: Last Vital Signs Temp 36.8 C 07/27/20 08:00 Pulse 93 07/27/20 08:00 Resp 16 07/27/20 08:00 BP 106/65 07/27/20 08:00 Pulse Ox 97 07/27/20 08:00 Weight - Most Recent: 78.925 kg I&O - Last 24 Hours: Intake & Output 07/27/20 07/27/20 07/27/20 06:59 14:59 22:59 Intake Total 3240 Output Total 1550 Balance 1690 - Problem List & Annotations (1) 40 weeks gestation of SNOMED Code(s): 78542981 Code(s): Z3A.40 - 40 WEEKS GESTATION OF Status: Acute Current Visit: No (2) Vaginal delivery SNOMED Code(s): 329566447 Code(s): O80 - ENCOUNTER FOR FULL-TERM UNCOMPLICATED DELIVERY Status: Acute Current Visit: No - Problem List Review Problem List Initiated/Reviewed/Updated: Yes - My Orders Last 24 Hours: My Active Orders 07/27/20 Breakfast Regular Diet [DIET] 07/27/20 07:21 Urinary Catheter Assessment [RC] ASDIRECTED Nalbuphine [Nubain] 10 mg IVPUSH Q2H PRN Ondansetron [Zofran] 4 mg IVPUSH Q4H PRN Sodium Chloride 0.9% [Saline Flush] 10 ml FLUSH ASDIRECTED PRN Resuscitation Status Routine 07/27/20 07:22 Patient Status [ADT] Routine Activity as Tolerated [RC] PFP Communication Order [RC] ASDIRECTED Heart Tones [RC] ASDIRECTED Non Stress Test [RC] PER UNIT ROUTINE Notify Provider [RC] PFP Notify Provider [RC] PRN Peripheral IV Care [RC] . DIRECTED Vital Signs [RC] PER UNIT ROUTINE RAPID PLASMA REAGIN,RPR [CHEM] Routine Electronic Heart Tones Ext w TOCO [WOMSER] Routine Electronic Heart Tones Internal [WOMSER] Per Unit Routine Peripheral IV Insertion Adult [OM.PC] Routine 07/27/20 07:23 Pump Management, Intrathecal [RC] ASDIRECTED 07/27/20 07:30 Lactated Ringers [Ringers, Lactated] 1,000 ml IV ASDIRECTED Oxytocin/Lactated Ringers [Pitocin in LR 10 Units/1,000 ML] 10 unit in 1,000 ml IV .CONTINUOUS Oxytocin/Lactated Ringers [Pitocin in LR 10 Units/1,000 ML] 10 unit in 1,000 ml IV TITRATE - Assessment Assessment:: PPD#0 - Plan Plan:: * Routine cares * Breast feeding * Discharge home in 2 days
[2020-07-27] MEDS ORDERED: Benzocaine/Menthol 20%-0.5% Spray 56 GM Canister TOP PRN (22:50)
[2020-07-27] MEDS ORDERED: Witch Hazel Medicated Pads 40/Jar TOP PRN (22:50)
[2020-07-27] MEDS ORDERED: Acetaminophen 325 MG Tab PO PRN (22:50)
[2020-07-28] MEDS: Ibuprofen 600 MG Tab PO PRN ×4 (01:06→19:56)
[2020-07-28] MEDS: Docusate Sodium 100 MG Cap PO PRN ×2 (01:06→08:02)
--- NOTE | 2020-07-28 07:18 | PCM.PNPP ---
- General Info Date of Service: 07/28/20 Functional Status: Reports: Pain Controlled, Tolerating Diet, Ambulating, Urinating - Review of Systems General: Reports: No Symptoms Pulmonary: Reports: No Symptoms Cardiovascular: Reports: No Symptoms Gastrointestinal: Reports: No Symptoms Genitourinary: Reports: No Symptoms Musculoskeletal: Reports: No Symptoms Neurological: Reports: No Symptoms - Patient Data Vital Signs - Most Recent: Last Vital Signs Temp 36.7 C 07/28/20 02:59 Pulse 75 07/28/20 02:59 Resp 16 07/28/20 02:59 BP 97/59 L 07/28/20 02:59 Pulse Ox 98 07/28/20 02:59 Weight - Most Recent: 78.925 kg I&O - Last 24 Hours: Intake & Output 07/27/20 07/28/20 07/28/20 22:59 06:59 14:59 Intake Total 3240 3000 Output Total 2650 Balance 590 3000 Lab Results - Last 24 Hours: Laboratory Results - last 24 hr 07/27/20 07/27/20 07/27/20 Range/Units 07:25 07:50 08:00 WBC 7.65 (3.98-10.04) K/mm3 RBC 3.91 L (3.98-5.22) M/mm3 Hgb 11.5 D (11.2-15.7) gm/dl Hct 35.2 (34.1-44.9) % MCV 90.0 (79.4-94.8) fl MCH 29.4 (25.6-32.2) pg MCHC 32.7 (32.2-35.5) g/dl RDW Std Deviation 41.5 (36.4-46.3) fL Plt Count 205 (182-369) K/mm3 MPV 10.6 (9.4-12.3) fl Neut % (Auto) 66.6 (34.0-71.1) % Lymph % (Auto) 21.3 (19.3-51.7) % [place] % (Auto) 9.0 (4.7-12.5) % Eos % (Auto) 2.1 (0.7-5.8) Baso % (Auto) 0.1 (0.1-1.2) % Neut # (Auto) 5.09 (1.56-6.13) K/mm3 Lymph # (Auto) 1.63 (1.18-3.74) K/mm3 [place] # (Auto) 0.69 H (0.24-0.36) K/mm3 Eos # (Auto) 0.16 (0.04-0.36) K/mm3 Baso # (Auto) 0.01 (0.01-0.08) K/mm3 SARS-CoV-2 RNA (CE) Negative (NEGATIVE) Blood Type A POSITIVE Gel Antibody Screen Negative Med Orders - Current: Current Medications Acetaminophen (Tylenol) 650 mg PO Q4H PRN PRN Reason: mild pain or fever Benzocaine/Menthol (Dermoplast Pain Relief [place]) 0 gm TOP ASDIRECTED PRN PRN Reason: Perineal Comfort Measure Docusate Sodium (Colace) 100 mg PO BID PRN PRN Reason: Constipation Last Admin: 07/28/20 01:06 Dose: 100 mg Documented by: Ibuprofen (Motrin) 600 mg PO Q6H PRN PRN Reason: Mild pain or fever Last Admin: 07/28/20 01:06 Dose: 600 mg [facility] pad TOP ASDIRECTED PRN PRN Reason: Perineal Comfort Measure Discontinued Medications Diphenhydramine HCl (Benadryl) 25 mg IVPUSH Q6H PRN PRN Reason: pruritis Ephedrine Sulfate (Ephedrine Sulfate) 5 mg IVPUSH ASDIRECTED PRN PRN Reason: Hypotension Fentanyl (Sublimaze) 100 mcg EPIDUR Q3H PRN PRN Reason: Pain Last Admin: 07/27/20 13:38 Dose: 100 mcg Documented by: Fentanyl/Bupivacaine HCl (Fentanyl/Bupivacaine/Ns 2 Mcg-0.125% 100 Ml) 100 ml EPIDUR ASDIRECTED PRN PRN Reason: Pain Last Admin: 07/27/20 13:38 Dose: 100 ml Documented by: Oxytocin/Lactated Ringer's (Pitocin In Lr 10 Units/1,000 Ml) 10 unit in 1,000 mls @ 12 mls/hr IV TITRATE HALEY; Protocol Last Titration: 07/27/20 21:00 Dose: 28 munits/min, 168 mls/hr Documented by: Oxytocin/Lactated Ringer's (Pitocin In Lr 10 Units/1,000 Ml) 10 unit in 1,000 mls @ 500 mls/hr IV .CONTINUOUS HALEY Lactated Ringer's (Ringers, Lactated) 1,000 mls @ 100 mls/hr IV ASDIRECTED HALEY Last Admin: 07/27/20 19:53 Dose: 999 mls/hr Documented by: Nalbuphine HCl (Nubain) 10 mg IVPUSH Q2H PRN PRN Reason: Pain Ondansetron HCl (Zofran) 4 mg IVPUSH Q4H PRN PRN Reason: Nausea/Vomiting Sodium Chloride (Saline Flush) 10 ml FLUSH ASDIRECTED PRN PRN Reason: Keep Vein Open - Infant Interaction Disposition, : in Room with Family Interaction: Holding Infant Feeding: Attempted ; Nursed Fair/Poor Support Person: - Recovery Exam Fundal Tone: Firm Fundal Level: At Umbilicus Fundal Placement: Midline Lochia Amount: Small Lochia Color: Rubra/Red Perineum Description: Intact, Minimal Bruising/Swelling Episiotomy/Laceration: None Bladder Status: Voiding Urinary Elimination: Voided - Exam General: Alert, Oriented, Cooperative GI/Abdominal Exam: Soft, Non-Tender Extremities: Normal Inspection Skin: Warm, Dry, Intact - Problem List & Annotations (1) 40 weeks gestation of SNOMED Code(s): 32346106 Code(s): Z3A.40 - 40 WEEKS GESTATION OF Status: Acute Current Visit: No (2) Vaginal delivery SNOMED Code(s): 477870710 Code(s): O80 - ENCOUNTER FOR FULL-TERM UNCOMPLICATED DELIVERY Status: Acute Current Visit: No - Problem List Review Problem List Initiated/Reviewed/Updated: Yes - My Orders Last 24 Hours: My Active Orders 07/27/20 Breakfast Regular Diet [DIET] 07/27/20 07:21 Resuscitation Status Routine 07/27/20 22:50 Acetaminophen [TylenoL] 650 mg PO Q4H PRN Benzocaine/Menthol [Dermoplast Pain Relief [place]] See Dose Instructions TOP ASDIRECTED PRN Docusate Sodium [Colace] 100 mg PO BID PRN Ibuprofen [Motrin] 600 mg PO Q6H PRN witch Evelyn [Tucks] 1 pad TOP ASDIRECTED PRN Heat Therapy [OM.PC] PRN 07/27/20 22:50 Activity as Tolerated [RC] PER UNIT ROUTINE Up ad Cheryl [RC] ASDIRECTED Vital Signs [RC] 03,,, Assess Lochia [WOMSER] Per Unit Routine Assess Uterine Involution [WOMSER] Per Unit Routine Breast Pump [WOMSER] Per Unit Routine Ice Therapy [OM.PC] Per Unit Routine Perineal Care [OM.PC] Per Unit Routine Peripheral IV Discontinue [OM.PC] Routine Sitz Bath [OM.PC] Per Unit Routine 07/28/20 22:50 Heat Therapy [OM.PC] PRN - Assessment Assessment:: PPD#1 - Plan Plan:: * Routine cares * Breast feeding * Discharge home tomorrow
--- NOTE | 2020-07-28 15:07 | PCM48HPAN ---
Post Anesthesia Note - EVALUATION WITHIN 48HRS OF ANESTHETIC Vital Signs in Normal Range: Yes Patient Participated in Evaluation: Yes Respiratory Function Stable: Yes Airway Patent: Yes Cardiovascular Function Stable: Yes Hydration Status Stable: Yes Pain Control Satisfactory: Yes Nausea and Vomiting Control Satisfactory: Yes Mental Status Recovered: Yes Vital Signs: Last Vital Signs Temp 99.0 F 07/28/20 14:24 Pulse 80 07/28/20 14:24 Resp 14 07/28/20 14:24 BP 104/54 L 07/28/20 14:24 Pulse Ox 96 07/28/20 14:24 - COMMENTS/OBSERVATIONS Free Text/Narrative:: Patient is on her day 1. Denies any backache or headache, denies any numbness or tingling in lower extremities, ambulating, no difficulty urinating.
--- NOTE | 2020-07-29 06:31 | PCM.PNPP ---
- General Info Date of Service: 07/29/20 Functional Status: Reports: Pain Controlled, Tolerating Diet, Ambulating, Urinating - Review of Systems General: Reports: No Symptoms Pulmonary: Reports: No Symptoms Cardiovascular: Reports: No Symptoms Gastrointestinal: Reports: No Symptoms Genitourinary: Reports: No Symptoms Musculoskeletal: Reports: No Symptoms Neurological: Reports: No Symptoms - Patient Data Vital Signs - Most Recent: Last Vital Signs Temp 36.8 C 07/29/20 03:50 Pulse 60 07/29/20 03:50 Resp 14 07/29/20 03:50 BP 98/58 L 07/29/20 03:50 Pulse Ox 98 07/29/20 03:50 Weight - Most Recent: 78.925 kg I&O - Last 24 Hours: Intake & Output 07/28/20 07/28/20 07/29/20 14:59 22:59 06:59 Intake Total 240 Balance 240 Med Orders - Current: Current Medications Acetaminophen (Tylenol) 650 mg PO Q4H PRN PRN Reason: mild pain or fever Benzocaine/Menthol (Dermoplast Pain Relief [place]) 0 gm TOP ASDIRECTED PRN PRN Reason: Perineal Comfort Measure Last Admin: 07/28/20 08:06 Dose: 1 can Documented by: Docusate Sodium (Colace) 100 mg PO BID PRN PRN Reason: Constipation Last Admin: 07/28/20 08:02 Dose: 100 mg Documented by: Ibuprofen (Motrin) 600 mg PO Q6H PRN PRN Reason: Mild pain or fever Last Admin: 07/28/20 19:56 Dose: 600 mg Documented by: Pavan Koenig ([place]) 1 pad TOP ASDIRECTED PRN PRN Reason: Perineal Comfort Measure Last Admin: 07/28/20 08:05 Dose: 1 tub Documented by: Discontinued Medications Diphenhydramine HCl (Benadryl) 25 mg IVPUSH Q6H PRN PRN Reason: pruritis Ephedrine Sulfate (Ephedrine Sulfate) 5 mg IVPUSH ASDIRECTED PRN PRN Reason: Hypotension Fentanyl (Sublimaze) 100 mcg EPIDUR Q3H PRN PRN Reason: Pain Last Admin: 07/27/20 13:38 Dose: 100 mcg Documented by: Fentanyl/Bupivacaine HCl (Fentanyl/Bupivacaine/Ns 2 Mcg-0.125% 100 Ml) 100 ml EPIDUR ASDIRECTED PRN PRN Reason: Pain Last Admin: 07/27/20 13:38 Dose: 100 ml Documented by: Oxytocin/Lactated Ringer's (Pitocin In Lr 10 Units/1,000 Ml) 10 unit in 1,000 mls @ 12 mls/hr IV TITRATE HALEY; Protocol Last Titration: 07/27/20 21:00 Dose: 28 munits/min, 168 mls/hr Documented by: Oxytocin/Lactated Ringer's (Pitocin In Lr 10 Units/1,000 Ml) 10 unit in 1,000 mls @ 500 mls/hr IV .CONTINUOUS HALEY Lactated Ringer's (Ringers, Lactated) 1,000 mls @ 100 mls/hr IV ASDIRECTED HALEY Last Admin: 07/27/20 19:53 Dose: 999 mls/hr Documented by: Lidocaine/Epinephrine (Xylocaine-Mpf 1.5% W/Epinephrine 1:200,000) 5 ml .ROUTE .[facility] ONE Stop: 07/27/20 10:01 Nalbuphine HCl (Nubain) 10 mg IVPUSH Q2H PRN PRN Reason: Pain Ondansetron HCl (Zofran) 4 mg IVPUSH Q4H PRN PRN Reason: Nausea/Vomiting Sodium Chloride (Saline Flush) 10 ml FLUSH ASDIRECTED PRN PRN Reason: Keep Vein Open - Infant Interaction Infant Disposition, : in Room with Family Interaction: Holding Infant Feeding: Attempted ; Nursed Fair/Poor Support Person: - Recovery Exam Fundal Tone: Firm Fundal Level: 1 Fingerbreadths Below Umbilicus Fundal Placement: Midline Lochia Amount: Scant Lochia Color: Rubra/Red Perineum Description: Intact, Minimal Bruising/Swelling Episiotomy/Laceration: None Bladder Status: Voiding Urinary Elimination: Voided - Exam General: Alert, Oriented, Cooperative GI/Abdominal Exam: Soft, Non-Tender Extremities: Normal Inspection Skin: Warm, Dry, Intact - Problem List & Annotations (1) 40 weeks gestation of SNOMED Code(s): 52327076 Code(s): Z3A.40 - 40 WEEKS GESTATION OF Status: Acute Current Visit: No (2) Vaginal delivery SNOMED Code(s): 416727398 Code(s): O80 - ENCOUNTER FOR FULL-TERM UNCOMPLICATED DELIVERY Status: Acute Current Visit: No - Problem List Review Problem List Initiated/Reviewed/Updated: Yes - My Orders Last 24 Hours: My Active Orders 07/28/20 22:50 Heat Therapy [OM.PC] PRN 07/29/20 06:30 Ready for Discharge [RC] PER UNIT ROUTINE - Assessment Assessment:: PPD#2 - Plan Plan:: * Routine cares * Breast feeding * Discharge home today
--- NOTE | 2020-07-29 06:31 | PCM.DCSUM1 ---
Discharge Summary - Discharge Data Discharge Date: 07/29/20 Discharge Disposition: Home, Self-Care 01 Condition: Good - Referral to Home Health Primary Care Physician: Twyla Uriostegui MD - Discharge Diagnosis/Problem(s) (1) 40 weeks gestation of SNOMED Code(s): 46823099 ICD Code: Z3A.40 - 40 WEEKS GESTATION OF Status: Acute Current Visit: No (2) Vaginal delivery SNOMED Code(s): 480778728 ICD Code: O80 - ENCOUNTER FOR FULL-TERM UNCOMPLICATED DELIVERY Status: Acute Current Visit: No - Patient Summary/Data Complications: None Consults: None Recommended Follow-up Testing/Procedures: Follow up in 3 weeks for check Hospital Course: Patient is a 35 y/o who presented at 40 2/7 wks for IOL. Done with Pitocin and AROM. Progressed well. Underwent an uncomplicated . See delivery note. did well and was discharged home on PPD#2 - Patient Instructions Diet: Regular Diet as Tolerated Activity: As Tolerated Activity, Other: Pelvic rest for 6 weeks Driving: May Drive Today Showering/Bathing: May Shower Showering/Bathing, Other: May Bathe Notify Provider of: Fever, Increased Pain, Swelling and Redness, Drainage, Nausea and/or Vomiting - Discharge Plan *PRESCRIPTION DRUG MONITORING PROGRAM REVIEWED*: No *COPY OF PRESCRIPTION DRUG MONITORING REPORT IN PATIENT LISA: No Home Medications: Home Meds Vit 90/Iron Fum/Folic [ Formula] 1 tab PO DAILY 06/02/14 [History] Docusate Sodium [Colace] 100 mg PO BID PRN cap 07/28/20 [Rx] Ibuprofen [Motrin] 600 mg PO Q6H PRN tablet 07/28/20 [Rx] Patient Handouts: Mastitis, Breast Engorgement, Care After Vaginal Delivery Referrals: Twyla Uriostegui MD [Primary Care Provider] - (3 weeks for check - can be telehealth ) - Discharge Summary/Plan Comment DC Time >30 min.: No - Patient Data Vitals - Most Recent: Last Vital Signs Temp 36.8 C 07/29/20 03:50 Pulse 60 07/29/20 03:50 Resp 14 07/29/20 03:50 BP 98/58 L 07/29/20 03:50 Pulse Ox 98 07/29/20 03:50 Weight - Most Recent: 78.925 kg I&O - Last 24 hours: Intake & Output 07/28/20 07/28/20 07/29/20 14:59 22:59 06:59 Intake Total 240 Balance 240 Med Orders - Current: Current Medications Acetaminophen (Tylenol) 650 mg PO Q4H PRN PRN Reason: mild pain or fever Benzocaine/Menthol (Dermoplast Pain Relief [place]) 0 gm TOP ASDIRECTED PRN PRN Reason: Perineal Comfort Measure Last Admin: 07/28/20 08:06 Dose: 1 can Documented by: Docusate Sodium (Colace) 100 mg PO BID PRN PRN Reason: Constipation Last Admin: 07/28/20 08:02 Dose: 100 mg Documented by: Ibuprofen (Motrin) 600 mg PO Q6H PRN PRN Reason: Mild pain or fever Last Admin: 07/28/20 19:56 Dose: 600 mg Documented by: Pavan Koenig (Radha) 1 pad TOP ASDIRECTED PRN PRN Reason: Perineal Comfort Measure Last Admin: 07/28/20 08:05 Dose: 1 tub Documented by: Discontinued Medications Diphenhydramine HCl (Benadryl) 25 mg IVPUSH Q6H PRN PRN Reason: pruritis Ephedrine Sulfate (Ephedrine Sulfate) 5 mg IVPUSH ASDIRECTED PRN PRN Reason: Hypotension Fentanyl (Sublimaze) 100 mcg EPIDUR Q3H PRN PRN Reason: Pain Last Admin: 07/27/20 13:38 Dose: 100 mcg Documented by: Fentanyl/Bupivacaine HCl (Fentanyl/Bupivacaine/Ns 2 Mcg-0.125% 100 Ml) 100 ml EPIDUR ASDIRECTED PRN PRN Reason: Pain Last Admin: 07/27/20 13:38 Dose: 100 ml Documented by: Oxytocin/Lactated Ringer's (Pitocin In Lr 10 Units/1,000 Ml) 10 unit in 1,000 mls @ 12 mls/hr IV TITRATE HALEY; Protocol Last Titration: 07/27/20 21:00 Dose: 28 munits/min, 168 mls/hr Documented by: Oxytocin/Lactated Ringer's (Pitocin In Lr 10 Units/1,000 Ml) 10 unit in 1,000 mls @ 500 mls/hr IV .CONTINUOUS HALEY Lactated Ringer's (Ringers, Lactated) 1,000 mls @ 100 mls/hr IV ASDIRECTED [facility] Last Admin: 07/27/20 19:53 Dose: 999 mls/hr Documented by: Lidocaine/Epinephrine (Xylocaine-Mpf 1.5% W/Epinephrine 1:200,000) 5 ml .ROUTE .[facility] ONE Stop: 07/27/20 10:01 Nalbuphine HCl (Nubain) 10 mg IVPUSH Q2H PRN PRN Reason: Pain Ondansetron HCl (Zofran) 4 mg IVPUSH Q4H PRN PRN Reason: Nausea/Vomiting Sodium Chloride (Saline Flush) 10 ml FLUSH ASDIRECTED PRN PRN Reason: Keep Vein Open
[2020-07-29 10:36] VITALS: BP 96/60; PULSE 67
== END 2020-07-29 09:30 | disposition home or self-care (01) | DRG 560 ==
LOC: EDSTATUS 07:06 → JD.OB 07-27 07:10 → OBSVTOIN 07-27 22:29 → JD.OB 07-27 22:29
PROVIDERS: ADMIT Obstetrics & Gynecology; ATTEND Obstetrics & Gynecology
PROC: 10E0XZZ Delivery of Products of Conception, External Approach (ICD-10-PCS; principal; 2020-07-27)
PROC: 10907ZC Drainage of Amniotic Fluid, Therapeutic from Products of Conception, Via Natural or Artificial Opening (ICD-10-PCS; 2020-07-27)
PROC: 3E0R3BZ Introduction of Anesthetic Agent into Spinal Canal, Percutaneous Approach (ICD-10-PCS; 2020-07-27)
PROC: 00HU33Z Insertion of Infusion Device into Spinal Canal, Percutaneous Approach (ICD-10-PCS; 2020-07-27)
DX: O48.0 Post-term pregnancy (principal); Z3A.40 40 weeks gestation of pregnancy; Z37.0 Single live birth; Z20.822 Contact with and (suspected) exposure to COVID-19
CPT/HCPCS: 01967; 36415; 51702; 59025; 59409; 85025; 86850; 86900; 86901; A9270-GY; J2590; J3010; J7120; U0002